=== PATIENT | male | born 1980 | race Caucasian/White ===

== ENCOUNTER 2018-08-01 11:39 | Emergency (ER) | payer OTHER, BC ==
[~2018-08-01] VITALS: Ht 180.3 cm; Wt 95.2 kg
[~2018-08-01 11:39] MED LIST: HYDACE5 PO
== END 2018-08-01 14:20 | disposition home or self-care (01) ==
LOC: ER 11:39
DX: S40.011A Contusion of right shoulder, initial encounter (principal); S20.219A Contusion of unspecified front wall of thorax, initial encounter; V29.9XXA Motorcycle rider (driver) (passenger) injured in unspecified traffic accident, initial encounter
CPT/HCPCS: 71046; 73030; 99284-25

== ENCOUNTER → 2020-10-19 | Outpatient (CLI) | payer SELFPAY ==
[2020-10-20 08:09] LABS: HBSAG SCREEN Negative (Negative); HCV ANTIBODY 0.1 (0.0-0.9); HIV SCREEN 4TH GENERATION WRFX Non Reactive (Non Reactive)
== END | disposition home or self-care (01) ==
LOC: LAB SHORT 14:34
PROVIDERS: Family Medicine
DX: Z20.9 Contact with and (suspected) exposure to unspecified communicable disease (principal)
CPT/HCPCS: 36415; 84460; 86317; 86803; 87340; 87389